=== PATIENT | male | born 1955 | race Caucasian/White ===

== ENCOUNTER 2017-04-09 09:06 | Emergency (ER) | payer OTHER ==
[~2017-04-09] VITALS: Ht 175.3 cm; Wt 113.4 kg
[2017-04-09] MEDS ORDERED: HYDROmorphone PF 1 MG/ML DISP.SYRIN IV/SQ PRN (09:15)
[2017-04-09] MEDS ORDERED: 0.9 % SODIUM CHLORIDE 10 ML DISP.SYRIN. IV PRN (09:15)
--- NOTE | 2017-04-09 09:19 | PHYS DOC ---
Past History Past Medical History: Anxiety, Depression, Hypertension, Kidney Stones Additional Past Medical Histor: insomnia Past Surgical History: No Surgical History Smoking: Non-smoker Alcohol Use: None Drug Use: None Adult General Chief Complaint Chief Complaint: FLANK PAIN HPI HPI Patient is a pleasant 61-year-old male with a known history of kidney stones, anxiety, hypertension, borderline diabetes, insomnia, and depression who presents with flank pain that woke him up this morning around 6 AM has gotten progressively worse. Patient admits she's had a history kidney stones before last one 3 years ago this began as a sharp stabbing pain in his left flank with radiation to the groin and testicle on the left side. He denies any urgency but is having some dysuria, without frequency, hematuria or penile discharge. Patient admits to no trauma, no fevers, just without diarrhea or constipation. Patient denies any travel outside the country as, denies any rash, denies any change in medications. Patient's pain is 9 of 10 at this time not worse with change in position not improved with any fluids are changed with meals. Review of Systems Review of Systems Constitutional: Denies fever or chills [] Eyes: Denies change in visual acuity, redness, or eye pain [] HENT: Denies nasal congestion or sore throat [] Respiratory: Denies cough or shortness of breath [] Cardiovascular: No additional information not addressed in HPI [] GI: Positive for abdominal pain described as left sharp flank pain, nausea without vomiting diarrhea constipation or : Positive for urgency and dysuria Musculoskeletal: Positive for left flank pain or back pain Integument: Denies rash or skin lesions [] Neurologic: Denies headache, focal weakness or sensory changes [] Endocrine: Denies polyuria or polydipsia [] All other systems were reviewed and found to be within normal limits, except as documented in this note. Physical Exam Physical Exam Other vital signs on the chart patient noted to be hypertensive Constitutional: Well developed, well nourished, patient is not diaphoretic but obviously uncomfortable, non-toxic appearance. [] HENT: Normocephalic, atraumatic, bilateral external ears normal, oropharynx moist, no oral exudates, Eyes: PERRLA, EOMI, conjunctiva normal, no discharge. [] Neck: Normal range of motion, no tenderness, supple, no stridor. [] Cardiovascular:Heart rate regular rhythm, no murmur [] Lungs & Thorax: Bilateral breath sounds clear to auscultation [] Abdomen: Bowel sounds normal, soft, no tenderness, no masses, no pulsatile masses. [] Skin: Warm, dry, no erythema, no rash. [] Back: Tender to palpation over the left CVA no obvious rash no obvious swelling. Extremities: No tenderness, no cyanosis, no clubbing, ROM intact, no edema. [] Neurologic: Alert and oriented X 3, normal motor function, normal sensory function, no focal deficits noted. [] Psychologic: Affect normal, judgement normal, mood normal. [] EKG EKG []EKG timed 9:23 AM read by me at 04/09/2017 demonstrates a heart rate of 71 sinus rhythm is low voltage overall the MO interval is normal 184 and QRS width is 82, QTc is 40 20 which is normal limits. There is no specific ST segment or T -wave changes seen with acute coronary ischemia Radiology/Procedures Radiology/Procedures [] IMAGING REPORT Signed PATIENT: LAVERNE DUNNE ACCOUNT: [id number] : 1955 LOCATION: ER AGE: 61 SEX: M EXAM STATUS: REG ER ORD. PHYSICIAN: HEYDI NGUYEN MD REASON: flank pain PROCEDURE: CT ABDOMEN PELVIS WO CONTRAST Examination: CT of the abdomen pelvis without IV contrast History: History of left flank pain, history of renal stones Comparison: None available Technique: Axial CT images of the abdomen pelvis were performed without contrast. Coronal and sagittal reformats were performed PQRS Compliance Statement: One or more of the following individualized dose reduction techniques were utilized for this examination: 1. Automated exposure control 2. Adjustment of the mA and/or kV according to patient size 3. Use of iterative reconstruction technique Findings: The visualized bibasal lungs are clear. No evidence of free air identified in the abdomen. The visualized noncontrasted liver, spleen, adrenals grossly appears unremarkable. Few gallstones identified in the proximal gallbladder. The stomach is mildly distended. The visualized pancreas grossly appears unremarkable. The small bowel is nondilated. The appendix is normal. Feces and gas noted throughout the colon. Few sigmoid colon diverticulosis identified. Urinary bladder is mildly distended. Multiple bilateral intrarenal collecting system calculi identified with the largest measuring 1.1 cm on the left at the calyx pelvic junction and in the right kidney measuring 9 mm at the calyx pelvic junction. Mild left-sided hydronephrosis and hydroureter identified with a 4 mm calculus identified at the left ureterovesical junction. There is minimal fat stranding identified around the left ureter. Cystic structures identified in the bilateral kidneys with the largest measuring 4.9 cm in the inferior pole of the left kidney could be cysts or cystic lesions. The caliber of the aorta grossly appears unremarkable. Mild degenerative changes lumbar spine. Impression: 1. 4 mm calculus identified in the left uterovesical junction causing mild left-sided hydronephrosis and hydroureter. 2. Multiple bilateral intrarenal collecting system calculi with the largest measuring 1.1 cm on the left at the calyx pelvic junction and in the right kidney measuring 9 mm at the calyx pelvic junction. 3. Bilateral renal cysts or cystic lesions. Recommend follow-up nonemergent ultrasound for further evaluation. 4. Cholelithiasis. Course & Med Decision Making Course & Med Decision Making Laboratory Tests Test 04/09/17 09:18 04/09/17 10:25 White Blood Count 10.7 x10^3/uL (4.0-11.0) Red Blood Count 6.12 x10^6/uL (4.30-5.70) H Hemoglobin 16.8 g/dL (13.0-17.5) Hematocrit 50.5 % (39.0-53.0) Mean Corpuscular Volume 82 fL (79-100) Mean Corpuscular Hemoglobin 27 pg (25-35) Mean Corpuscular Hemoglobin Concent 33 g/dL (31-37) Red Cell Distribution Width 15.0 % (11.5-14.5) H Platelet Count 306 x10^3/uL (140-400) Neutrophils (%) (Auto) 76 % (31-73) H Lymphocytes (%) (Auto) 17 % (24-48) L Monocytes (%) (Auto) 7 % (0-9) Eosinophils (%) (Auto) 1 % (0-3) Basophils (%) (Auto) 1 % (0-3) Neutrophils # (Auto) 8.1 x10^3uL (1.8-7.7) H Lymphocytes # (Auto) 1.8 x10^3/uL (1.0-4.8) Monocytes # (Auto) 0.7 x10^3/uL (0.0-1.1) Eosinophils # (Auto) 0.1 x10^3/uL (0.0-0.7) Basophils # (Auto) 0.1 x10^3/uL (0.0-0.2) Sodium Level 141 mmol/L (136-145) Potassium Level 4.1 mmol/L (3.5-5.1) Chloride Level 102 mmol/L (98-107) Carbon Dioxide Level 28 mmol/L (21-32) Anion Gap 11 (6-14) Blood Urea Nitrogen 14 mg/dL (8-26) Creatinine 1.3 mg/dL (0.7-1.3) Estimated GFR (Cockcroft-Gault) 56.5 Glucose Level 115 mg/dL (70-99) H Calcium Level 8.9 mg/dL (8.5-10.1) Total Bilirubin 0.5 mg/dL (0.2-1.0) Direct Bilirubin 0.1 mg/dL (0.0-0.2) Aspartate Amino Transferase (AST) 12 U/L (15-37) L Alanine Aminotransferase (ALT) 22 U/L (16-63) Alkaline Phosphatase 122 U/L (46-116) H Creatine Kinase 47 U/L (39-308) Creatine Kinase MB (Mass) 0.5 ng/mL (0.0-3.6) Creatine Kinase MB Relative Index 1.1 % (0-4) Troponin I Quantitative < 0.017 ng/mL (0-0.055) Total Protein 8.0 g/dL (6.4-8.2) Albumin 4.1 g/dL (3.4-5.0) Lipase 106 U/L (73-393) Urine Collection Type Unknown Urine Color Yellow Urine Clarity Cloudy Urine pH 8.0 Urine Specific Regan 1.015 Urine Protein Neg (NEG-TRACE) Urine Glucose (UA) Neg mg/dL (NEG) Urine Ketones (Stick) Neg mg/dL (NEG) Urine Blood Large (NEG) Urine Nitrite Neg (NEG) Urine Bilirubin Neg (NEG) Urine Urobilinogen Dipstick 0.2 mg/dL (0.2 mg/dL) Urine Leukocyte Esterase Neg (NEG) Urine RBC >40 /HPF (0-2) Urine WBC Rare /HPF (0-4) Urine Squamous Epithelial Cells None /LPF Urine Bacteria 0 /HPF (0-FEW) Urine Mucus Mod /LPF Laboratory Tests Test 04/09/17 09:18 White Blood Count 10.7 x10^3/uL (4.0-11.0) Red Blood Count 6.12 x10^6/uL (4.30-5.70) H Hemoglobin 16.8 g/dL (13.0-17.5) Hematocrit 50.5 % (39.0-53.0) Mean Corpuscular Volume 82 fL (79-100) Mean Corpuscular Hemoglobin 27 pg (25-35) Mean Corpuscular Hemoglobin Concent 33 g/dL (31-37) Red Cell Distribution Width 15.0 % (11.5-14.5) H Platelet Count 306 x10^3/uL (140-400) Neutrophils (%) (Auto) 76 % (31-73) H Lymphocytes (%) (Auto) 17 % (24-48) L Monocytes (%) (Auto) 7 % (0-9) Eosinophils (%) (Auto) 1 % (0-3) Basophils (%) (Auto) 1 % (0-3) Neutrophils # (Auto) 8.1 x10^3uL (1.8-7.7) H Lymphocytes # (Auto) 1.8 x10^3/uL (1.0-4.8) Monocytes # (Auto) 0.7 x10^3/uL (0.0-1.1) Eosinophils # (Auto) 0.1 x10^3/uL (0.0-0.7) Basophils # (Auto) 0.1 x10^3/uL (0.0-0.2) Sodium Level 141 mmol/L (136-145) Potassium Level 4.1 mmol/L (3.5-5.1) Chloride Level 102 mmol/L (98-107) Carbon Dioxide Level 28 mmol/L (21-32) Anion Gap 11 (6-14) Blood Urea Nitrogen 14 mg/dL (8-26) Creatinine 1.3 mg/dL (0.7-1.3) Estimated GFR (Cockcroft-Gault) 56.5 Glucose Level 115 mg/dL (70-99) H Calcium Level 8.9 mg/dL (8.5-10.1) Total Bilirubin 0.5 mg/dL (0.2-1.0) Direct Bilirubin 0.1 mg/dL (0.0-0.2) Aspartate Amino Transferase (AST) 12 U/L (15-37) L Alanine Aminotransferase (ALT) 22 U/L (16-63) Alkaline Phosphatase 122 U/L (46-116) H Creatine Kinase 47 U/L (39-308) Creatine Kinase MB (Mass) 0.5 ng/mL (0.0-3.6) Creatine Kinase MB Relative Index 1.1 % (0-4) Troponin I Quantitative < 0.017 ng/mL (0-0.055) Total Protein 8.0 g/dL (6.4-8.2) Albumin 4.1 g/dL (3.4-5.0) Lipase 106 U/L (73-393) Pertinent Labs and Imaging studies reviewed. (See chart for details) []he presents with left flank pain with radiation into the groin without signs of urinary tract symptoms. Patient presents with sudden onset of pain is had in the past. Similar to this from kidney stones. Differential diagnosis as including but not limited to kidney stones, pyonephritis, small bowel obstruction, large bowel resection, aneurysm, bowel perforation, peptic ulcer disease, trauma, compression fracture, epidural abscess, epidural hematoma, prior fracture, cauda equina syndrome, Time is now 10 AM patient feels markedly improved by patient review. I reviewed laboratory with him so far to include LFTs, lipase, CBC which shows mild shift otherwise normal. I have also reviewed EKG and awaiting CT scan. Time is now 10:[address] scan is returned with a positive finding of a left ureteral vesicular junction stone of 4 mm. There is moderate hydronephrosis. Patient is feeling markedly improved pain has improved patient is not febrile. Still awaiting urinalysis evaluation. His urinalysis does not demonstrate any signs of infection patient be discharged home with medications to help expel the stone and treat pain. I will refer him to his urologist discharge: I've spoken with the patient and/or caregivers. I've explained the patient's condition, diagnosis and treatment plan based on information available to me at this time. I've answered the patient's and/or caregivers questions and addressed any concerns. The patient and/or caregivers have a good understanding the patient's diagnosis, condition and treatment plan as can be expected at this point. Vital signs have been stabilized. The patient's condition is stable for discharge from the emergency department. The patient will pursue further outpatient evaluation with her primary care provider or other designated consulting physician as outlined in the discharge instructions. Patient and/or caregivers are agreeable to this plan of care and follow-up instructions have been explained in detail. The patient and/or caregivers have received these instructions in written format and expressed understanding of these discharge instructions. The patient and her caregivers are aware that if any significant change in condition or worsening of symptoms should prompt him to immediately return to this of the closest emergency department. If an emergent department is not readily available I would encourage him to call 911. Dragon Disclaimer Dragon Disclaimer This electronic medical record was generated, in whole or in part, using a voice recognition dictation system. Departure Departure: Impression: Primary Impression: Kidney stones Disposition: HOME, SELF-CARE Condition: IMPROVED Patient Instructions: Diet for Kidney Stones, Kidney Stones Additional Instructions: discharge: I've spoken with the patient and/or caregivers. I've explained the patient's condition, diagnosis and treatment plan based on information available to me at this time. I've answered the patient's and/or caregivers questions and addressed any concerns. The patient and/or caregivers have a good understanding the patient's diagnosis, condition and treatment plan as can be expected at this point. Vital signs have been stabilized. The patient's condition is stable for discharge from the emergency department. The patient will pursue further outpatient evaluation with her primary care provider or other designated consulting physician as outlined in the discharge instructions. Patient and/or caregivers are agreeable to this plan of care and follow-up instructions have been explained in detail. The patient and/or caregivers have received these instructions in written format and expressed understanding of these discharge instructions. The patient and her caregivers are aware that if any significant change in condition or worsening of symptoms should prompt him to immediately return to this of the closest emergency department. If an emergent department is not readily available I would encourage him to call 911. Scripts Naproxen (NAPROSYN) 500 Mg Tablet 1 TAB PO BID, #20 TAB 1 Refill Prov: HEYDI NGUYEN MD 2/8/18 Tamsulosin Hcl (FLOMAX) 0.4 Mg Cap.er.24h 1 CAP PO DAILY, #30 CAP 0 Refills Prov: HEYDI NGUYEN MD 04/09/17 Ondansetron (ZOFRAN ODT) 4 Mg Tab.rapdis 1 TAB SL Q8HRS, #15 TAB Prov: HEYDI NGUYEN MD 04/09/17 Hydrocodone Bit/Acetaminophen (HYDROCODONE-APAP 5-325 ) 1 Each Tablet 1 TAB PO PRN Q6HRS Y for PAIN for 5 Days, #14 TAB 0 Refills Prov: HEYDI NGUYEN MD 04/09/17 HEYDI NGUYEN MD Apr 09, 2017 09:19
[2017-04-09] MEDS ORDERED: ONDANSETRON PF 4 MG/2 ML VIAL. ONE (09:24)
[2017-04-09] MEDS ORDERED: KETOROLAC 30 MG/ML VIAL. ONE (09:25)
[2017-04-09] MEDS ORDERED: KETOROLAC 30 MG/ML VIAL. IV ONE (09:30)
[2017-04-09] MEDS ORDERED: ONDANSETRON PF 4 MG/2 ML VIAL. IV ONE (09:30)
[2017-04-09] MEDS ORDERED: IV NORMAL SALINE 1,000ML 1,000 ML IV SCH (09:30)
[2017-04-09 09:33] LABS: BASO # 0.1 x10^3/uL (0.0-0.2); BASO % 1 % (0-3); EOS # 0.1 x10^3/uL (0.0-0.7); EOS % 1 % (0-3); HEMATOCRIT 50.5 % (39.0-53.0); HEMOGLOBIN 16.8 g/dL (13.0-17.5); LYMPH # 1.8 x10^3/uL (1.0-4.8); LYMPH % 17 % (24-48); MEAN CORPUSCULAR HEMOGLOBIN 27 pg (25-35); MEAN CORPUSCULAR HGB CONC 33 g/dL (31-37); MEAN CORPUSCULAR VOLUME 82 fL (79-100); MONO # 0.7 x10^3/uL (0.0-1.1); MONO % 7 % (0-9); NEUT # 8.1 x10^3uL (1.8-7.7); NEUT % 76 % (31-73); PLATELET COUNT 306 x10^3/uL (140-400); RED BLOOD COUNT 6.12 x10^6/uL (4.30-5.70); WHITE BLOOD COUNT 10.7 x10^3/uL (4.0-11.0)
--- NOTE | 2017-04-09 10:00 | RAD ---
Examination: CT of the abdomen pelvis without IV contrast History: History of left flank pain, history of renal stones Comparison: None available Technique: Axial CT images of the abdomen pelvis were performed without contrast. Coronal and sagittal reformats were performed PQRS Compliance Statement: One or more of the following individualized dose reduction techniques were utilized for this examination: 1. Automated exposure control 2. Adjustment of the mA and/or kV according to patient size 3. Use of iterative reconstruction technique Findings: The visualized bibasal lungs are clear. No evidence of free air identified in the abdomen. The visualized noncontrasted liver, spleen, adrenals grossly appears unremarkable. Few gallstones identified in the proximal gallbladder. The stomach is mildly distended. The visualized pancreas grossly appears unremarkable. The small bowel is nondilated. The appendix is normal. Feces and gas noted throughout the colon. Few sigmoid colon diverticulosis identified. Urinary bladder is mildly distended. Multiple bilateral intrarenal collecting system calculi identified with the largest measuring 1.1 cm on the left at the calyx pelvic junction and in the right kidney measuring 9 mm at the calyx pelvic junction. Mild left-sided hydronephrosis and hydroureter identified with a 4 mm calculus identified at the left ureterovesical junction. There is minimal fat stranding identified around the left ureter. Cystic structures identified in the bilateral kidneys with the largest measuring 4.9 cm in the inferior pole of the left kidney could be cysts or cystic lesions. The caliber of the aorta grossly appears unremarkable. Mild degenerative changes lumbar spine. Impression: 1. 4 mm calculus identified in the left uterovesical junction causing mild left-sided hydronephrosis and hydroureter. 2. Multiple bilateral intrarenal collecting system calculi with the largest measuring 1.1 cm on the left at the calyx pelvic junction and in the right kidney measuring 9 mm at the calyx pelvic junction. 3. Bilateral renal cysts or cystic lesions. Recommend follow-up nonemergent ultrasound for further evaluation. 4. Cholelithiasis.
--- NOTE | 2017-04-09 10:01 | EKG ---
[address] [address] Test Date: 2017-04-09 Test Time: 09:23:31 Pat Name: LAVERNE DUNNE Department: Room: Gender: M Sack Filler: : 1955 Requested By: HEYDI NGUYEN Order Number: [id number] Reading MD: Bret Murray Measurements Intervals [place] Rate: 71 P: 56 DC: 184 QRS: 29 QRSD: 82 T: 28 QT: 384 QTc: 422 Interpretive Statements SINUS RHYTHM LOW LIMB LEAD VOLTAGE NO SPECIFIC ECG ABNORMALITIES RI6.01 No previous ECG available for comparison Electronically Signed On 04-13-2017 14:45:13 C[employer]OMER CARE ASSISTANT by Bret Murray
[2017-04-09 10:02] LABS: ALBUMIN 4.1 g/dL (3.4-5.0); CALCIUM 8.9 mg/dL (8.5-10.1); CREATININE 1.3 mg/dL (0.7-1.3); DIRECT BILIRUBIN 0.1 mg/dL (0.0-0.2); GFR 56.5; POTASSIUM 4.1 mmol/L (3.5-5.1); TOTAL BILIRUBIN 0.5 mg/dL (0.2-1.0)
[2017-04-09] MEDS ORDERED: TAMS0.4C97 PO (10:27)
[2017-04-09] MEDS ORDERED: NAPR-683 PO (10:27)
[2017-04-09] MEDS ORDERED: ONDA4TAB10 SL (10:27)
[2017-04-09] MEDS ORDERED: HYDR-2758 PO (10:27)
[2017-04-09 10:59] LABS: BACTERIA,URINE 0 /HPF (0-FEW); BILIRUBIN,URINE NEG (NEG); CLARITY,URINE CLOUDY; COLOR,URINE YELLOW; GLUCOSE,URINE NEG (NEG); NITRITE,URINE NEG (NEG); RBC,URINE >40 /HPF (0-2); UROBILINOGEN,URINE 0.2 mg/dL (0.2 mg/dL); WBC,URINE RARE /HPF (0-4)
[2017-04-09 12:10] VITALS: BP 158/87
== END 2017-04-09 12:10 | disposition home or self-care (01) ==
LOC: ER 09:06
DX: N20.0 Calculus of kidney (principal); I10 Essential (primary) hypertension; Z87.442 Personal history of urinary calculi
CPT/HCPCS: 36415; 74176; 80048; 80076; 81001; 82553; 83690; 84484; 85025; 93005; 96361; 96374; 96375; 99285; J1170; J1885; J2405; J7030

== ENCOUNTER → 2021-04-22 | Outpatient (CLI) | payer OTHER ==
[~2021-04-22] MED LIST: HYDR-2155 PO; NAPR-683 PO; ONDA4TAB10 SL; TAMS0.4C97 PO
--- NOTE | 2021-04-22 10:56 | RAD ---
EXAM: XR RT WRIST 3VIEWS 04/22/2021 10:47 AM CLINICAL INDICATION: Contusion of right wrist COMPARISON: None TECHNIQUE: 3 views of the right wrist FINDINGS: No acute fracture. Alignment is normal. Joint spaces are maintained. Soft tissues normal. IMPRESSION: No acute osseous abnormality. Electronically signed by: Joan Brennan MD (04/22/2021 10:53 AM) [id number]
== END ==
LOC: RAD 10:33
PROVIDERS: ATTEND Nurse Practitioner Family
DX: S60.211A Contusion of right wrist, initial encounter (principal); X58.XXXA Exposure to other specified factors, initial encounter; Y93.89 Activity, other specified; Y92.89 Other specified places as the place of occurrence of the external cause; Y99.8 Other external cause status
CPT/HCPCS: 73110

== ENCOUNTER 2021-04-28 12:34 | Emergency (ER) | payer OTHER ==
[~2021-04-28] VITALS: Ht 175.3 cm; Wt 147.5 kg
[2021-04-28 13:05] VITALS: BP 141/75
[2021-04-28] MEDS ORDERED: traMADol 50 MG TABLET PO ONE (13:30)
--- NOTE | 2021-04-28 14:15 | RAD ---
Two-view right forearm dated 04/28/2021. COMPARISON: None. Clinical data indication: Pain. FINDINGS: 2 views the right forearm show normal bony alignment. No displaced fracture. No periostitis or bone d estruction. No acute osseous or articular abnormality. No apparent fat pad elevation at the elbow. IMPRESSION: No acute findings. Electronically signed by: Sumeet Bajwa MD (04/28/2021 2:12 PM) [id number]
[2021-04-28] MEDS ORDERED: NAPR-514 PO (14:40)
--- NOTE | 2021-04-28 14:41 | PHYS DOC ---
Past History Past Medical History: Kidney Stones Additional Past Medical Histor: GOUT Past Surgical History: Other Additional Past Surgical Histo: KIDNEY STONE REMOVAL Alcohol Use: None General Adult EDM: Chief Complaint: WRIST PAIN HPI: HPI: Patient is a 66 year old male who presents with right forearm pain. On Thursday04/19/2021, patient states that he fell on the ice and had wrist and forearm pain. The following 04/22/2021, patient visited [facility] urgent care and received outpatient plain films of the wrist. At that time, he denies having films of his forearm or elbow obtained. He followed with his primary care doctor, Dr. Jackson, who placed him in a wrist splint. The past week, he has been wearing the wrist splint with improved pain in the wrist. He states his forearm pain is persistent. He has gone through his prescription of tramadol and is seeking further evaluation of his forearm pain. He denies pale skin or paresthesias and extremity is not subjectively cool to touch. Review of Systems: Review of Systems: ROS negative or noncontributory except as mentioned in HPI. Current Medications: Current Meds: Current Medications Medications (Trade) Dose Ordered Sig/Vidya Start Time Stop Time Status Last Admin Dose Admin Tramadol HCl (Ultram) 50 mg 1X ONCE 04/28/21 13:30 04/28/21 13:37 DC 04/28/21 14:05 50 MG Allergies: Allergies: Allergies Coded Allergies Type Severity Reaction Last Updated Verified No Known Drug Allergies 04/28/21 No Physical Exam: PE: Constitutional: Well developed, well nourished, no acute distress, non-toxic appearance. HENT: Normocephalic, atraumatic, bilateral external ears normal, nose normal. Eyes: EOMI, conjunctiva normal, no discharge. Neck: Normal range of motion, no stridor. Skin: Warm, dry, no erythema, no rash, no pallor, no cyanosis. Extremities: Proximal right forearm with lateral and anterior tenderness, active and passive range of motion intact and painless, radial pulses 2+ and symmetrical, soft compartments. Extremities otherwise no tenderness, no cyanosis, no clubbing, ROM intact, no edema. Neurologic: Alert and oriented x4, no focal deficits noted. Current Patient Data: Vital Signs: Vital Signs Date Time Temp Pulse Resp B/P (MAP) Pulse Ox O2 Delivery O2 Flow Rate FiO2 04/28/21 14:05 20 Room Air 04/28/21 13:05 98.8 90 141/75 (97 96 Radiology/Procedures: Radiology/Procedures: PROCEDURE: FOREARM RIGHT Two-view right forearm dated 04/28/2021. COMPARISON: None. Clinical data indication: Pain. FINDINGS: 2 views the right forearm show normal bony alignment. No displaced fracture. No periostitis or bone destruction. No acute osseous or articular abnormality. No apparent fat pad elevation at the elbow. IMPRESSION: No acute findings. Electronically signed by: Sumeet Bajwa MD (04/28/2021 2:12 PM) [id number] Heart Score: C/O Chest Pain: No Course & Med Decision Making: Course & Med Decision Making Pertinent Labs and Imaging studies reviewed. (See chart for details) Patient is a 66-year-old male who sustained a right upper extremity injury over 1 week ago. Patient's wrist was evaluated and treated with immobilization using a splint. He reports improved pain. He continues to have proximal forearm pain. Plain films obtained. As noted in physical exam, I am not concerned at this time for compartment syndrome. Patient likely has muscle strain related to his original injury. Patient was given supportive treatment measures. He will follow-up with his primary care doctor. If needed, he may be referred to orthopedics for further evaluation and management by his primary care doctor. Patient understands and is agreeable to discharge plan. Dragon Disclaimer: Dragon Disclaimer: This electronic medical record was generated, in whole or in part, using a voice recognition dictation system. Departure Departure: Impression: Primary Impression: Strain of other muscles, fascia and tendons at forearm level, right arm, initial encounter Additional Impression: History of sprained wrist Disposition: HOME / SELF CARE / HOMELESS Condition: STABLE Referrals: ANGELO JACKSON MD (PCP) Patient Instructions: Muscle Strain, [id number] Additional Instructions: EMERGENCY DEPARTMENT GENERAL DISCHARGE INSTRUCTIONS Thank you for coming to [facility] (ED) today and trusting us with you care. We trust that you had a positive experience in our Emergency Department. If you wish to speak to the department management, you may call the director at [phone]. YOUR FOLLOW UP INSTRUCTIONS ARE FOLLOWS: 1. Follow up with your primary care doctor. If you do not have a primary doctor, please ask for a resource list of physicians or clinics that may be able to assist you with follow up care. 2. The emergency provider has interpreted your imaging studies, if any were ordered. The radiology philosophy specialist also reviewed them. If there is a change in the findings, you will be notified in 48 hours when at all possible. 3. If a lab test or culture has been done, your results will be reviewed and you will be notified if you need a change in treatment. 4. Follow instructions verbalized to you and refer to the printouts if needed. ADDITIONAL INSTRUCTIONS AND INFORMATION: 1. Your care today has been supervised by a physician who is specially trained in emergency care. Many problems require more than one evaluation for a complete diagnosis and treatment. We recommend that you schedule your follow up appointment as recommended to ensure complete treatment of you illness or injury. If you are unable to obtain follow up care and continue to have a problem, or if your condition worsens, we recommend that you return to the ED. 2. We are not able to safely determine your condition over the phone nor are we able to give sound medical advice over the phone. For these safety reasons, if you call for medical advice we will ask you to come to the ED for further evaluation. 3. If you have any questions regarding these discharge instructions please call the ED at [phone]. SAFETY INFORMATION: In the interest of safety, wellness, and injury prevention; we encourage you to wear your seat belt, if you smoke; quite smoking, and we encourage family to use a protective helmet for bicycling and other sporting events that present an increased risk for head injury. IF YOUR SYMPTOMS WORSEN OR NEW SYMPTOMS DEVELOP, OR YOU HAVE CONCERNS ABOUT YOUR CONDITION; OR IF YOUR CONDITION WORSENS WHILE YOU ARE WAITING FOR YOUR FOLLOW UP APPOINTMENT; EITHER CONTACT YOUR PRIMARY CARE DOCTOR, THE PHYSICIAN WHOSE NAME AND NUMBER YOU WERE GIVEN, OR RETURN TO THE ED IMMEDIATELY. Scripts Naproxen (NAPROXEN) 500 Mg Tablet 1 TAB PO BID for pain for 10 Days, #20 TAB 0 Refills Prov: TUYET WEST 04/28/21 TUYET WEST Apr 28, 2021 14:41
== END 2021-04-28 14:47 | disposition home or self-care (01) ==
LOC: MERGE 12:34 → ER 12:34
DX: S56.811A Strain of other muscles, fascia and tendons at forearm level, right arm, initial encounter (principal); Z87.442 Personal history of urinary calculi; W00.0XXA Fall on same level due to ice and snow, initial encounter; Y93.89 Activity, other specified; Y92.89 Other specified places as the place of occurrence of the external cause; Y99.8 Other external cause status
CPT/HCPCS: 73090; 99283